=== PATIENT | male | born 1975 | race Caucasian/White ===

== ENCOUNTER 2020-02-12 02:36 | Outpatient (CLI) | payer BC, SELFPAY ==
[2020-02-12 22:42] LABS: SARS-CoV-2 RNA PCR Negative
== END 2020-02-12 02:37 | disposition home or self-care (01) ==
LOC: ANHCOVIDDT 02:36
PROVIDERS: PCP Family Medicine; Visit Provider Internal Medicine Gastroenterology
DX: Z01.812 Encounter for preprocedural laboratory examination (principal); Z20.828 Contact with and (suspected) exposure to other viral communicable diseases
CPT/HCPCS: 87635; C9803; U0003

== ENCOUNTER 2020-02-15 00:20 | Day surgery (SDC) | payer BC, SELFPAY ==
[2020-02-08 13:00] VITALS: BMI 37.3
[2020-02-15 08:52] VITALS: BP 122/83; PULSE 100; RESP 18; TEMP 36.5; O2SAT 97; BMI 38.0
[2020-02-15] MEDS: LACTATED RINGERS 1,000 ML 150 ML IV CONT (09:03)
--- NOTE | 2020-02-15 09:38 | P.CONGI_ITS ---
Assessment and Plan Assessment and plan (1) Family history of colonic polyps: Code(s): Z83.71 - Family history of colonic polyps Status: Acute Assessment and Plan: Patient's father had colon polyps. Because this family history screening colonoscopy is advised at this time. Patient is intermittent rectal bleeding attributed to hemorrhoids which will be assessed at the same time. High-fiber diet supplementation encourage. GI Consult Note Consult date/time: 02/15/20 09:38 HPI: Ozzy Heart is a 44 year old male Seen in evaluation at the request of Dr. Jose Tran. Patient reports occasional bright red blood per rectum streaking after a bowel movement. He denies any abdominal or rectal pain. His bowel habits are regular. Family history is significant that his father had colon polyps. Patient reports his current weight appetite bowel movements are normal. Review of Systems Review of Systems: All systems reviewed & are unremarkable except as noted in HPI and below PMFSH Social History Social History Smoking status: Never smoker Alcohol intake: current Drinks per week: 6 Substance use: never Substance use type: does not use Living arrangements: with family Spiritual care concerns: No Meds Home Medications and Allergies Home Medications Medication Instructions Recorded Confirmed Type gabapentin 300 mg PO BID 02/08/20 02/15/20 History meloxicam 15 mg PO DAILY 02/08/20 02/15/20 History paroxetine HCl 20 mg PO DAILY 02/08/20 02/15/20 History trazodone 50 mg PO HS PRN 02/08/20 02/15/20 History zolpidem 5 mg PO HS PRN 02/08/20 02/15/20 History Allergies Allergy/AdvReac Type Severity Reaction Status Date / Time No Known Allergies Allergy Unverified 02/15/20 08:50 Vital Signs Vital Signs - 24 hr 02/15/20 08:52 Temperature 97.7 F Pulse Rate 100 Respiratory Rate 18 Blood Pressure 122/83 Pulse Oximetry 97 Exam Narrative: Exam Narrative: Physical exam reveals patient to be alert. Vital signs stable. HEENT exam unremarkable. Lungs are clear to auscultation and to percussion. Heart is without murmur or extra sounds. Abdominal exam bowel sounds are present soft nontender with no organomegaly digital external rectal e xam is normal.
--- NOTE | 2020-02-15 09:54 | WPDANESEPPF ---
Anes - Initial Pre Proc Eval Procedure: Operation Date: 02/15/20 10:00 Proposed Procedures p Colonoscopy - Stevenson Ruiz MD Date/Time: 02/15/20 09:54 Surgeon: Stevenson Ruiz MD Pre Op Diagnosis: rectal bleeding, family hx of colon polyps Patient Data Age: 44 Gender: M Height: 5 ft 6 in Weight: 107 kg Last Vital Signs Temp 36.5 C 02/15/20 08:52 Pulse 100 02/15/20 08:52 Resp 18 02/15/20 08:52 BP 122/83 02/15/20 08:52 Pulse Ox 97 02/15/20 08:52 Allergies Allergy/AdvReac Type Severity Reaction Status Date / Time No Known Allergies Allergy Unverified 02/15/20 08:50 Home Medications Medication Instructions Recorded Confirmed Type gabapentin 300 mg PO BID 02/08/20 02/15/20 History meloxicam 15 mg PO DAILY 02/08/20 02/15/20 History paroxetine HCl 20 mg PO DAILY 02/08/20 02/15/20 History trazodone 50 mg PO HS PRN 02/08/20 02/15/20 History zolpidem 5 mg PO HS PRN 02/08/20 02/15/20 History Patient hx anesthesia problems: none Family hx anesthesia problems: none PMFSH Past Medical History Medical History (Updated 02/15/20 @ 09:54 by Tello Liz MD) Anxiety Obesity Surgical History Surgical History (Updated 02/15/20 @ 09:57 by Tello Liz MD) H/O arthroscopic knee surgery History of shoulder surgery Social History Social History Smoking status: Never smoker Alcohol intake: current Drinks per week: 6 Substance use: never Substance use type: does not use Living arrangements: with family Spiritual care concerns: No Anes - Eval Final PreProcedure Day of Procedure 02/15/20 09:54 Patient weight: obese Heart: regular rate and rhythm Lungs: clear to auscultation Airway: Mallampati scale class II Neurological: alert and oriented Last oral intake: >/= 8 hours ASA classification: II Emergent: no Anesthetic plan: proceed Anesthesia type and monitoring: general GIVS and standard monitoring Informed Consent: The patient's anesthetic plan and its attendant risks and benefits were discussed with the patient/family/POA. Questions were solicited and answers provided to the satisfaction of the patient/family/POA.
[2020-02-15 10:26] VITALS: BP 97/69; PULSE 92; RESP 16; O2SAT 93
[2020-02-15 10:36] VITALS: BP 138/83; PULSE 91; RESP 18; O2SAT 96
[2020-02-15 10:46] VITALS: BP 129/89; PULSE 92; RESP 18; O2SAT 98
== END 2020-02-15 11:00 | disposition home or self-care (01) ==
PROVIDERS: PCP Family Medicine; Visit Provider Internal Medicine Gastroenterology
PROC: 0DJD8ZZ Inspection of Lower Intestinal Tract, Via Natural or Artificial Opening Endoscopic (ICD-10-PCS; CPT 45378; principal; 2020-02-15 10:00)
DX: Z12.11 Encounter for screening for malignant neoplasm of colon (principal); K62.5 Hemorrhage of anus and rectum; K64.8 Other hemorrhoids; K63.5 Polyp of colon; Z83.71 Family history of colonic polyps; F41.9 Anxiety disorder, unspecified; E66.9 Obesity, unspecified; Z68.38 Body mass index [BMI] 38.0-38.9, adult
CPT/HCPCS: 45385; 88305; J2704; J7120

== ENCOUNTER 2024-12-04 00:12 | Day surgery (SDC) | payer BC, SELFPAY ==
[2024-11-20 10:01] VITALS: BMI 35.5
--- OUTSIDE RECORDS SUMMARY | 2024-12-04 00:15 | XMS_ITS | Clinical Summary ---
Author Organization [facility] Address [address] [address] [place] [phone] Phone Care Team Providers Care Coconut Jelly Roller Name Role Phone Jose Tran MD Primary Care Provider [phone] Allergies No known active allergies Medications gabapentin (NEURONTIN) 300 mg capsule Take 600 mg by mouth daily at bedtime. Active meloxicam (MOBIC) 15 mg tablet Take 15 mg by mouth daily. Active cyclopentolate (CYCLOGYL) 1 % solution Administer 1 Drop in right eye every 3 hours as needed for Pain. 0.05 mL 0 Active Social History Tobacco Use Types Packs/Day Years Used Date Smoking Tobacco: Never Smokeless Tobacco: Never Sex and Gender Information Value Date Recorded Sex Assigned at Not on file Legal Sex Male 10:21 PM RN INTEGRATED Gender Identity Not on file Sexual Orientation Not on file Last Filed Vital Signs Vital Sign Reading Time Taken Comments Blood Pressure 151/99 02/12/2020 11:14 PM RN INTEGRATED Pulse - - Temperature 36.7 C (98 F) 02/12/2020 11:14 PM RN INTEGRATED Respiratory Rate 16 02/12/2020 11:14 PM RN INTEGRATED Oxygen Saturation 98% 02/12/2020 11:14 PM RN INTEGRATED Inhaled Oxygen Concentration - - Weight 104.3 kg (230 lb) 02/12/2020 10:35 PM RN INTEGRATED Height 167.6 cm (5' 6) 02/12/2020 10:35 PM RN INTEGRATED Body Mass Index 37.12 02/12/2020 10:35 PM RN INTEGRATED Plan of Treatment Health Maintenance Due Date Last Done Comments DTAP/TDAP/TD VACCINES (1 - Tdap) 1992 HEPATITIS B VACCINES (1 of 3 - 19+ 3-dose series) 08/1992 COLORECTAL SCREENING 2018 Colorectal Cancer Screening 2018 FIT-DNA Q 3 years 2018 FIT/FOBT Q 1 year 2018 Flex Sig/CT Colonography Q 5 years 2018 ZOSTER VACCINE (1 of 2) 07/05/2023 INFLUENZA VACCINE (#1) 2024 Insurance [facility] [email or web address] PPO Care Teams Coconut Jelly Roller Relationship Specialty Start Date End Date Jose Tran MD [address] [place] [id number] PCP - General Family Practice 02/12/20
--- OUTSIDE RECORDS SUMMARY | 2024-12-04 00:15 | XMS_ITS | Clinical Summary ---
Author Organization [facility] Address Formerly [facility] [place] [address] Care Team Providers Care Interactive Developer Name Role Phone Unavailable Primary Care Provider Unavailabl e Social History Tobacco Use Types Packs/Day Years Used Date Smoking Tobacco: Never Assessed Sex and Gender Information Value Date Recorded Sex Assigned at Not on file Legal Sex Male 4:32 PM CDT Gender Identity Not on file Sexual Orientation Not on file Plan of Treatment Health Maintenance Due Date Last Done Comments Colorectal Cancer Screening Colonoscopy (10 Years) 1973 Annual Physical 1976 Hepatitis C 07/05/1991 DTaP, Tdap and Td Vaccines (5 - Td or Tdap) 11/29/2019 11/28/2009, 07/26/1978, 01/15/1975, Additional history exists Pneumococcal Vaccine: 50+ Years (1 of 1 - PCV) 07/05/2023 Zoster Vaccines (1 of 2) 07/05/2023 COVID-19 Vaccine (1 - 2023- season) 2024 Hepatitis B Vaccines Completed 10/12/1993, 04/02/1993, 02/26/1993 Meningococcal B Vaccine Aged Out No l onger eligible based on patient's age to complete this topic Meningococcal Vaccine Aged Out No luis son eligible based on patient's age to complete this topic RSV Immunizations Under 20 Months Aged Out No longer eligible based on patient's age to complete this topic
[2024-12-04 10:44] VITALS: BP 121/90; PULSE 87; RESP 16; TEMP 36.2; O2SAT 100; BMI 35.2
[2024-12-04] MEDS: LACTATED RINGERS 1,000 ML 150 ML IV CONT (11:05)
--- NOTE | 2024-12-04 11:38 | WPDANESEPPF ---
Anes - Initial Pre Proc Eval Procedure: Operation Date: 12/04/24 12:30 Proposed Procedures p Screening Colonoscopy - Lincoln Hutton MD Date/Time: 12/04/24 11:38 Surgeon: Lincoln Hutton MD Pre Op Diagnosis: Personal history of colon polyps, unspecified Patient Data Age: 49 Gender: M Height: 1.68 m Weight: 99 kg Last Vital Signs Temp 36.2 C L 12/04/24 10:44 Pulse 87 12/04/24 10:44 Resp 16 12/04/24 10:44 BP 121/90 12/04/24 10:44 Pulse Ox 100 12/04/24 10:44 O2 Del Method Room Air 12/04/24 10:44 Allergies Allergy/AdvReac Type Severity Reaction Status Date / Time No Known Allergies Allergy Verified 12/04/24 10:51 Home Medications ?Medication ?Instructions ?Recorded ?Confirmed ?Type atorvastatin 20 mg tablet See Rx Instructions .Route 08/07/24 12/04/24 Rx .COMPLEX #90 tabs meloxicam 15 mg tablet See Rx Instructions .Route 08/07/24 12/04/24 Rx .COMPLEX #90 tabs metformin 500 mg tablet,extended See Rx Instructions .Route 08/07/24 12/04/24 Rx release 24 hr .COMPLEX #180 tabs semaglutide 2 mg/dose (8 mg/3 mL) 2 mg (0.75 mL) subcut WEEKLY 08/07/24 11/20/24 Rx subcutaneous pen injector (Ozempic) days #9.75 mL Laboratory Tests 12/04/24 10:59 POC Capillary Glucose 107 H mg/dl (65-105) Patient hx anesthesia problems: none Family hx anesthesia problems: none Results Review: All pre-operative results and documents have been reviewed as part of the pre-operative evaluation. [facility] Past Medical History Medical History (Updated 08/07/24 @ 16:57 by Ani Mcdowell PA-C) Osteoarthritis involving multiple joints on both sides of body Essential hypertension Mixed hyperlipidemia Obstructive sleep apnea Diabetes mellitus type 2 in obese History of fracture of clavicle Osteoarthritis Depression Allergic rhinitis Anxiety Surgical History Surgical History History of shoulder surgery left shoulder rotator cuff repair and AC joint separation 1990s H/O arthroscopic knee surgery MCL repair R knee Arthroscopy harley. Family History Family History Father Carcinoma of colon Malignant neoplasm of prostate Grandparent Diabetes mellitus Heart disease Hypertension Social History Social History Smoking status: Never smoker Alcohol intake: current Drinks per week: 14 Substance use: never Substance use type: does not use Do You Feel Safe in your Home?: Yes Lack of Transportation: No Lack of Food: Never True Current Housing: I Have Housing Concerned About Future Housing: No Difficulty Paying Gas/Electric Bills: No Difficulty Paying for Meds: No Currently Unemployed: No Education: Bachelor's Degree Difficulty w/ Childcare or Family Care: No Living arrangements: with family Occupation/Education: occupation Gender identity (if verbalized by the patient): Male Sexual Orientation (if Verbalized by the Patient): Straight or Heterosexual Spiritual care concerns: No Anes - Eval Final PreProcedure Day of Procedure 12/04/24 11:38 Patient weight: obese Heart: regular rate and rhythm Lungs: clear to auscultation Airway: Mallampati scale class II Neurological: alert and oriented Last oral intake: >/= 8 hours ASA classification: III Emergent: no Anesthetic plan: proceed Anesthesia type and monitoring: general GIVS and standard monitoring Results Review: All pre-operative results and documents have been reviewed as part of the pre-operative evaluation. Informed Consent: The patient's anesthetic plan and its attendant risks and benefits were discussed with the patient/family/POA. Questions were solicited and answers provided to the satisfaction of the patient/family/POA.
--- NOTE | 2024-12-04 12:32 | P.HP_ITS ---
H&P: HPI History of Present Illness Date/Time: 12/04/24 12:32 Chief Complaint: Family history of colon cancer Narrative: This patient has family history of colorectal cancer. his father had in his mid 50s. The patient's last colonoscopy was about 5 years ago, finding a polyp. Review of Systems Review of Systems: All systems reviewed & are unremarkable except as noted in HPI and below PMFSH Past Medical History Medical History (Updated 12/04/24 @ 12:33 by Lincoln Hutton MD) Osteoarthritis involving multiple joints on both sides of body Essential hypertension Mixed hyperlipidemia Obstructive sleep apnea Diabetes mellitus type 2 in obese History of fracture of clavicle Osteoarthritis Depression Allergic rhinitis Anxiety Surgical History Surgical History History of shoulder surgery left shoulder rotator cuff repair and AC joint separation 1990s H/O arthroscopic knee surgery MCL repair R knee Arthroscopy harley. Family History Family History Father Carcinoma of colon Malignant neoplasm of prostate Grandparent Diabetes mellitus Heart disease Hypertension Social History Social History Smoking status: Never smoker Alcohol intake: current Drinks per week: 14 Substance use: never Substance use type: does not use Do You Feel Safe in your Home?: Yes Lack of Transportation: No Lack of Food: Never True Current Housing: I Have Housing Concerned About Future Housing: No Difficulty Paying Gas/Electric Bills: No Difficulty Paying for Meds: No Currently Unemployed: No Education: Bachelor's Degree Difficulty w/ Childcare or Family Care: No Living arrangements: with family Occupation/Education: occupation Gender identity (if verbalized by the patient): Male Sexual Orientation (if Verbalized by the Patient): Straight or Heterosexual Spiritual care concerns: No Meds Home Medications and Allergies Home Medications ?Medication ?Instructions ?Recorded ?Confirmed ?Type atorvastatin 20 mg tablet See Rx Instructions .Route 0 08/07/24 12/04/24 Rx .COMPLEX #90 tabs meloxicam 15 mg tablet See Rx Instructions .Route 0 08/07/24 12/04/24 Rx .COMPLEX #90 tabs metformin 500 mg tablet,extended See Rx Instructions . Route 08/07/24 12/04/24 Rx release 24 hr .COMPLEX #180 tabs semaglutide 2 mg/dose (8 mg/3 mL) 2 mg (0.75 mL) subcu t WEEKLY 90 08/07/24 11/20/24 Rx subcutaneous pen injector (Ozempic) days #9.75 mL Allergies Allergy/AdvReac Type Severity Reaction Status Date / Time No Known Allergies Allergy Verified 12/04/24 10:51 Vital Signs Vital Signs - 24 hr 12/04/24 10:44 Temperature 97.1 F L Pulse Rate 87 Respiratory Rate 16 Blood Pressure 121/90 Pulse Oximetry 100 Oxygen Delivery Room Air Exam Const: General: cooperative and healthy appearing Resp: Effort & Inspection: normal respiratory effort and able to speak in complete sentences Auscultation: clear to auscultation bilaterally Cardio: Rate: regular rate Rhythm: regular rhythm GI: Inspection: normal to inspection GI Palp: No No hepatosplenomegaly present Auscultation: normal bowel sounds Rectal Exam: deferred Skin: General skin exam: normal color Psych: Appearance: grossly normal Mental Status: mental status grossly normal Assessment and Plan Assessment and plan (1) Family history of colon cancer: Code(s): Z80.0 - Family history of malignant neoplasm of digestive organs Status: Acute Assessment and Plan: The patient is deemed a good candidate for the procedure. Consent signed. Will proceed.
[2024-12-04 13:05] VITALS: BP 123/82; PULSE 89; RESP 18; O2SAT 100
--- NOTE | 2024-12-04 13:05 | S_PTH ---
PATIENT: Ozzy Heart LOC: [facility] U#:[id number] AGE/SX: 49/M ROOM: RE12/04/[address]: Lincoln Hutton MD : 1975 BED: DIS: 12/04/2024 SPEC #: [id number] RECD: 12/04/24 14:03 STATUS: ERIN GOTTLIEB #: [id number] CARY: 12/04/24 13:[address]: Lincoln Hutton DEPT: [facility] Surgical RECD BY: Joya Sexton ENTERED: 12/04/24 14:05 SP TYPE: Surgical OTHR DR: Jose Tran MD Tissues: A - Colon Polypectomy B - Colon Polypectomy C - Colon Polypectomy D - Colon Biopsy Procedures: Hematoxylin and Eosin Stain Gross and Microscopic Level 4
[2024-12-04] MEDS: EPINEPHrine INJ 1 MG/10 ML SYRINGE XX (13:08)
[2024-12-04 13:15] VITALS: BP 134/91; PULSE 88; RESP 20; O2SAT 100
[2024-12-04 13:25] VITALS: BP 136/100; PULSE 74; RESP 20; O2SAT 100
[2024-12-04 13:33] VITALS: BP 130/94; PULSE 71; RESP 22; O2SAT 97
--- NOTE | 2024-12-04 13:34 | SUR.PHASEII ---
patients blood pressure was 136/100 then 130/94. Patient stated he doesn't take any blood pressure medication and checks his blood pressure at home. He stated to have told his primary doctor about having high blood pressure and that his primary doctor hasn't ordered him to take medications regarding his BP. Patient is asymptomatic. notfied of findings and patient was educated to follow up with primary doctor and instructed to contact if he has any questions or concerns.
== END 2024-12-04 13:42 | disposition home or self-care (01) ==
PROVIDERS: PCP Family Medicine; Visit Provider Internal Medicine Gastroenterology
PROC: 0DJD8ZZ Inspection of Lower Intestinal Tract, Via Natural or Artificial Opening Endoscopic (ICD-10-PCS; CPT 45378; principal; 2024-12-04 12:30)
DX: Z12.11 Encounter for screening for malignant neoplasm of colon (principal); D12.3 Benign neoplasm of transverse colon; K51.40 Inflammatory polyps of colon without complications; K57.30 Diverticulosis of large intestine without perforation or abscess without bleeding; K52.89 Other specified noninfective gastroenteritis and colitis; I10 Essential (primary) hypertension; E78.2 Mixed hyperlipidemia; G47.33 Obstructive sleep apnea (adult) (pediatric); E11.9 Type 2 diabetes mellitus without complications; F32.A Depression, unspecified; F41.9 Anxiety disorder, unspecified; M15.9 Polyosteoarthritis, unspecified; E66.9 Obesity, unspecified; Z68.35 Body mass index [BMI] 35.0-35.9, adult; Z79.84 Long term (current) use of oral hypoglycemic drugs; Z79.85 Long-term (current) use of injectable non-insulin antidiabetic drugs; Z98.890 Other specified postprocedural states; Z80.0 Family history of malignant neoplasm of digestive organs; Z80.42 Family history of malignant neoplasm of prostate; Z82.49 Family history of ischemic heart disease and other diseases of the circulatory system
CPT/HCPCS: 45380; 45385; 82948; 88305; J0168; J2003; J2704; J7120